=== PATIENT | male | born 1990 | race Caucasian/White ===

== ENCOUNTER → 2018-11-18 07:09 | Outpatient (CLI) | payer OTHER, SELFPAY ==
[2018-09-10 08:30] VITALS: BMI 39.9
[2018-11-18 07:45] LABS: Absolute Lymphocyte Count 2.86 X10^3/ul (0.83-4.51); Absolute Neutrophil Count 3.3 X10^3/uL (2.0-7.7); Basophil# 0.02 X10^3/uL; Basophil% 0.3 % (0-1); Eosinophil# 0.24 X10^3/uL; Eosinophils% 3.4 % (0-5); Hematocrit 44.8 % (40-54); Hemoglobin 15.3 g/dl (13.0-16.5); Lymphocyte # 2.86 X10^3/ul (4.0); Lymphocyte % 40.8 % (19-41); Mean Corp Hgb Conc 34.2 g/gl (32-36); Mean Corpuscular Hgb 29.9 pg (27.0-32.0); Mean Corpuscular Volume 87.7 fL (80-94); Mean Platelet Vol. 9.8 fl (6.2-12.0); Monocyte# 0.56 X10^3/uL; Neutrophil # 3.33 X10^3/uL (2.7-7.7); Neutrophil % 47.5 % (47-70); Platelet Count 231 K/mm3 (150-450); RBC Distribution Width CV 12.4 % (11.6-14.6); RBC Distribution Width SD 39.7 fl (35.1-43.9); Red Blood Count 5.11 M/mm3 (4.6-6.2)
[2018-11-18 07:48] LABS: POSITIVE COUNT NO; POSITIVE DIFFERENTIAL NO; POSITIVE MORPHOLOGY NO
[2018-11-18 08:12] LABS: ALB/GLOB Ratio 1.1 RATIO (0.9-2.4); AST(SGOT) 23 U/L (15-37); Alanine Aminotransfer ALT/SGPT 43 U/L (16-61); Alkaline Phosphatase 96 U/L (45-117); Anion Gap 6 (5-15); BUN 12 mg/dL (7-18); BUN/Creat Ratio 12.5 RATIO (10-20); Calcium,Total 8.5 mg/dL (8.5-10.1); Chloride 107 mmol/L (98-107); Cholesterol 179 mg/dL (200); Creatinine, Serum 0.96 mg/dL (0.70-1.30); EST Glomerular Filtration Rate 101 mL/min (>60); Est Glom Filt Rate - Afr Amer 122 mL/min (>60); Globulin 3.7 g/dL (2.2-4.2); Glucose 89 mg/dL (74-106); High Density Lipoprotein 43 mg/dL; Potassium 3.8 mmol/L (3.5-5.1); Protein, Total 7.7 g/dL (6.4-8.2); Sodium Level 140 mmol/L (136-145); Thyroid Stim Hormone (TSH) 2.41 uIU/mL (0.358-3.74); Triglycerides 84 mg/dL; Very Low Density Lipoprotein 17 mg/dL (5-40)
== END ==
PROVIDERS: Family Provider Internal Medicine; PCP Internal Medicine; Referring Provider Internal Medicine; Visit Provider Internal Medicine
DX: E78.5 Hyperlipidemia, unspecified (principal)
CPT/HCPCS: 36415; 80053; 80061; 84443; 85025

== ENCOUNTER → 2018-12-10 09:53 | Outpatient (CLI) | payer OTHER, SELFPAY ==
[2018-12-10 09:11] VITALS: BMI 39.9
--- NOTE | 2018-12-10 09:57 | EKG12_ITS ---
Test Reason : HYPERTENSION Blood Pressure : / mmHG Vent. Rate : 069 BPM Atrial Rate : 069 BPM P-R Int : 152 ms QRS Dur : 094 ms QT Int : 400 ms P-R-T Axes : 024 024 040 degrees QTc Int : 428 ms Normal sinus rhythm Normal ECG Confirmed by DOUGIE KNIGHT ([id number]), senior editor CAITLYN DRUMMOND ([id number]) on 12/13/2018 2:02:38 PM Referred By: Nadeem Martinez Confirmed By:DOUGIE KNIGHT
== END ==
PROVIDERS: Family Provider Internal Medicine; PCP Internal Medicine; Referring Provider Internal Medicine; Visit Provider Internal Medicine
DX: I10 Essential (primary) hypertension (principal)
CPT/HCPCS: 93005

== ENCOUNTER → 2021-06-07 | Outpatient (CLI) | payer MEDICAID, SELFPAY | END | disposition home or self-care (01) | LOC: LABSPEC 10:36 | PROVIDERS: PCP Internal Medicine; Referring Provider Physician Assistant Surgical; Visit Provider Physician Assistant Surgical | DX: Z20.822 Contact with and (suspected) exposure to COVID-19 (principal) | CPT/HCPCS: 87635; U0005; U0003 ==

== ENCOUNTER → 2021-07-30 09:03 | Outpatient (CLI) | payer MEDICAID, SELFPAY ==
[2021-07-30 09:42] LABS: Absolute Lymphocyte Count 3.49 X10^3/uL (0.83-4.51); Absolute Neutrophil Count 3.1 X10^3/uL (2.0-7.7); Basophil# 0.06 X10^3/uL; Basophil% 0.8 % (0-1); Eosinophil# 0.51 X10^3/uL; Eosinophils% 6.4 % (0-5); Hematocrit 45.9 % (40-54); Hemoglobin 15.1 g/dL (13.0-16.5); Lymphocyte # 3.49 X10^3/ul (0.83-4.51); Lymphocyte % 43.8 % (19-41); Mean Corp Hgb Conc 32.9 g/dL (32-36); Mean Corpuscular Hgb 29.6 pg (27.0-32.0); Mean Platelet Vol. 9.9 fl (6.2-12.0); Monocyte# 0.75 X10^3/uL; Monocyte% 9.4 % (0-10); NRBC Flagged by Analyzer 0 % (0-5); Neutrophil # 3.14 X10^3/uL (2.7-7.7); Neutrophil % 39.3 % (47-70); Platelet Count 271 K/mm3 (150-450); RBC Distribution Width SD 39.5 fl (35.1-43.9)
[2021-07-30 10:37] LABS: ALB/GLOB Ratio 0.9 RATIO (0.9-2.4); AST(SGOT) 30 U/L (15-37); Alanine Aminotransfer ALT/SGPT 71 U/L (16-61); Albumin, Serum 3.7 g/dL (3.2-5.0); Alkaline Phosphatase 109 U/L (45-117); Anion Gap 6 (5-15); BUN 12 mg/dL (7-18); BUN/Creat Ratio 11.8 RATIO (10-20); Calcium,Total 8.6 mg/dL (8.5-10.1); Chloride 106 mmol/L (98-107); Cholesterol 189 mg/dL (200); Creatinine, Serum 1.02 mg/dL (0.70-1.30); EST Glomerular Filtration Rate 92 mL/min (>60); Est Glom Filt Rate - Afr Amer 111 mL/min (>60); Glucose 95 mg/dL (74-106); High Density Lipoprotein 44 mg/dL; Potassium 3.7 mmol/L (3.5-5.1); Protein, Total 7.7 g/dL (6.4-8.2); Sodium Level 140 mmol/L (136-145); Thyroid Stim Hormone (TSH) 3.99 uIU/mL (0.358-3.74); Triglycerides 152 mg/dL; Very Low Density Lipoprotein 30 mg/dL (5-40)
== END ==
PROVIDERS: PCP Internal Medicine; Referring Provider Nurse Practitioner Family; Visit Provider Nurse Practitioner Family
DX: Z00.00 Encounter for general adult medical examination without abnormal findings (principal)
CPT/HCPCS: 36415; 80053; 80061; 84443; 85025

== ENCOUNTER → 2024-05-31 | Outpatient (CLI) | payer MEDICAID, SELFPAY ==
--- OUTSIDE RECORDS SUMMARY | 2024-05-31 17:49 | XMS RPT_ITS | CCD ---
Author Organization [facility] Partnership [facility] Care Team Providers Care 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 Name Role Phone Jason Tatum MD Unavailable Nadeem Martinez MD Primary Care Provider [phone] NADEEM MARTINEZ Primary Care Unavailable JACKI LYLE Referring Unavailable NADEEM MARTINEZ Primary Care Unavailable Nadeem Martinez MD Primary Care Provider [phone] Allergies Allergy Classification Reported Allergen(s) Allergy Type Date of Onset Reaction(s) Facility (4 sources) Amoxicillin; Translations: [AMOXICILLIN] Drug Allergy 05-19-2016 Other: See Comments [facility] Medications Current Medications Medication Drug Class(es) Dates Sig (Normalized) Sig (Original) escitalopram 20 mg oral tablet (3 sources) Serotonin Reuptake Inhibitor Start: 04-10-2023 escitalopram oxalate (LEXAPRO) 20 mg tablet 04/10/2023 Active predniSONE 20 mg oral tablet (2 sources) Start: 06-01-2023 End: 06-06-2023 take 2 tablets by mouth once daily predniSONE (DELTASONE) 20 mg tablet Take 2 tablets by mouth once daily for 5 days. 10 tablet 0 06/01/2023 06/06/2023 Active Comment on above: Take 2 tablets by [facility] once daily for 5 days. Completed/Discontinued Medications Medication Drug Class(es) Dates Sig (Normalized) Sig (Original) [id number] 200 actuat albuterol 0.09 mg/actuat metered dose inhaler (2 sources) beta2-Adrenergic Agonist Start: 06-01-2023 take 2 puff(s) by inhalation every six hours as needed albuterol HFA (PROAIR HFA) 90 mcg/actuation inhaler Inhale 2 Puffs as instructed every 6 hours as needed. 1 Each 0 06/01/2023 Active Comment on above: Inhale 2 Puffs as in structed every 6 hours as needed. Problems Problem Classification Problem Date Documented Da te Episodic/Chronic Chronic obstructive pulmonary disease and bronchiectasis (1 source) Bronchitis; Translations: [Bronchitis, not specified as acute or chronic] 06-01-2023 Episodic Other lower respiratory disease (1 source) Shortness of breath; Translations: [SOB (shortness of breath)] Onset: 06-01-2023 Episodic Other lower respiratory disease (1 source) Dyspnea; Translations: [Shortness of breath] 06-01-2023 Episodic Other nutritional; endocrine; and metabolic disorders (3 sources) Obesity; Translations: [Obesity, unspecified] 08-20-2016 Chronic Results Test Name Value Interpretation Reference Range [facility] ([id number]) 1990 Date Time Provider Department 06/02/23 MAURY JEFFERSON [facility] During your visit today, we recorded the following information about you: Maury Jefferson APRN.CNP 06/02/2023 7:23 AM Signed COVID-19, influenza A, and influenza B PCR test are negative. Continue supportive therapies as discussed during visit. Follow-up with PCP if symptoms are not improving. Maury Jefferson APRN.Maureen Kelly LPN 06/02/2023 7:27 AM Signed LM for patient with negative results.Maureen Anderson LPN Allergies As of Date: 06/02/2023 Noted Allergy Reaction AMOXICILLIN 05/19/2016 14 - Other: See Comments Comments: Joint pain Date Reviewed: 06/01/2023 Reviewed by: Ria Bush - Fully Assessed Reason for Visit: Results [95] Prescriptions as of 06/02/2023 - escitalopram oxalate (LEXAPRO) 20 mg tablet - predniSONE (DELTASONE) 20 mg tablet Take 2 tablets by mouth once daily for 5 days. - albuterol HFA (PROAIR HFA) 90 mcg/actuation inhaler Inhale 2 Puffs as instructed every 6 hours as needed. Problem List As Of Date 06/02/2023 Noted Resolved Obesity [E66.9] Encounter Status:Closed by MAUREEN ANDERSON LPN on 06/02/23 [facility] CNOVon 06-01-2023 CNOV Office Visit ([facility] ) CHATA BYERS ([id number]) 1990 M Date Time Provider Department 06/01/23 9:45 AM JACKI LYLE [facility] During your visit today, we recorded the following information about you: Temperature Pulse Respiration Blood pressure 99.1 degrees 98/minute 18/minute 118/72 Weight 139.7 kg Jacki Lyle PA-C 06/01/2023 10:50 AM Signed This note was created using Ticket ABCriter. Subjective Chata Byers is a 32 year old male. HPI Presents with fever and shortness of breath over the past 2 days. He states his kids have been sick with coughs recently as well. He denies any history of asthma. Feels wheezy however. No diarrhea or vomiting. Minimal cough. States his nose has been more dry than congestion. No ear pain. Denies sore throat. No home COVID test done. Temp at home was 100.5 this morning. No otc meds taken at home today. Review of Systems Constitutional: Positive for fatigue and fever. HENT: Negative for congestion, postnasal drip and sore throat. Respiratory: Positive for cough, shortness of breath and wheezing. Cardiovascular: Negative. Gastrointestinal: Negative. Genitourinary: Negative. Musculoskeletal: Negative. All other systems reviewed and are negative. PAST MEDICAL HISTORY Diagnosis Date Obesity Onychomycosis Current Outpatient Medications Medication Sig Dispense Refill escitalopram oxalate (LEXAPRO) 20 mg tablet predniSONE (DELTASONE) 20 mg tablet Take 2 tablets by mouth once daily for 5 days. 10 tablet 0 albuterol HFA (PROAIR HFA) 90 mcg/actuation inhaler Inhale 2 Puffs as instructed every 6 hours as needed. 1 Each 0 No current facility-administered medications for this visit. PAST SURGICAL HISTORY Procedure Laterality Date NONE FAMILY HISTORY Problem Relation Age of Onset Alzheimer's Disease Paternal Grandmother Social History Tobacco Use Smoking status: Some Days Years: 4 Types: Cigarettes Smokeless tobacco: Never Tobacco comments: 1 cigarette every 2-3 weeks Substance Use Topics Alcohol use: Yes Comment: monthly 2-3 drinks Drug use: No Objective BP 118/72 Pulse 98 Temp 37.3 ?C (99.1 ?F) Resp 18 Wt (!) 139.7 kg (308 lb) SpO2 96% BMI 42.36 kg/m? Physical Exam Vitals reviewed. Constitutional: Appearance: Normal appearance. HENT: Head: Normocephalic and atraumatic. Right Ear: Tympanic membrane, ear canal and external ear normal. Left Ear: Tympanic membrane, ear canal and external ear normal. Nose: Nose normal. Mouth/Throat: Mouth: Mucous membranes are moist. Pharynx: Oropharynx is clear. Cardiovascular: Rate and Rhythm: Normal rate and regular rhythm. Heart sounds: Normal heart sounds. Pulmonary: Effort: Pulmonary effort is normal. Breath sounds: Wheezing present. Comments: Mild diffuse wheezing at the end of expiration in all lung mast. No respiratory distress. No rhonchi. Musculoskeletal: Cervical back: Neck supple. Neurological: Mental Status: He is alert. Assessment and Plan ASSESSMENT/PLAN: 1. Bronchitis - ICD9: 490, ICD10: J40 This x-ray shows atelectasis versus fibrosis in his lingula. No pneumonia noted. I feel he does have a viral bronchitis. We will treat with prednisone and albuterol inhaler. Follow-up with PCP if not improving. Patient agreeable. - XR CHEST 2V FRONTAL/LAT OSIEL Maldonado Cara R, PA-C 06/01/2023 12:46 PM Signed Addended by: JACKI LYLE on: 06/01/2023 12:46 PM Modules accepted: Orders Allergies As of Date: 06/01/2023 Noted Allergy Reaction AMOXICILLIN 05/19/2016 14 - Other: See Comments Comments: Joint pain Date Reviewed: 06/01/2023 Reviewed by: Ria Bush - Fully Assessed Reason for Visit: Fever [47] Cmt: sob x 2 days Primary Visit Diagnosis:Bronchitis [J40] Order(s):XR CHEST 2V FRONTAL/LAT [[id number]] Order #: [id number] FUTURE predniSONE (DELTASONE) 20 mg tabletTake 2 tablets by mouth once daily for 5 days.Disp: 10 tabletRfl: 0 albuterol HFA (PROAIR HFA) 90 mcg/actuation inhalerInhale 2 Puffs as instructed every 6 hours as needed.Disp: 1 EachRfl: 0 COVID AND INFLUENZA A/B AND RSV NAAT, ROUTINE [SQCVFLRS] Order #: [id number]. #:[id number] COVID NAAT, UPPER RESPIRATORY, ROUTINE [SQCOVID] Reflex Order#: [id number] (Ord#:[id number])Spec. #:[id number] ROUTINE FLU A/B + RSV [SQRTFRSV] Reflex Order#: [id number] (Ord#:[id number])Spec. #:[id number] Prescriptions as of 06/01/2023 - escitalopram oxalate (LEXAPRO) 20 mg tablet - predniSONE (DELTASONE) 20 mg tablet Take 2 tablets by mouth once daily for 5 days. - albuterol HFA (PROAIR HFA) 90 mcg/actuation inhaler Inhale 2 Puffs as instructed every 6 hours as needed. Problem List As Of Date 06/01/2023 Noted Resolved Obesity [E66.9] Prescriptions ordered this encounter Disp Refills Start End PREDNISONE 20 MG TABLET 10 t* 0 06/01/2023 06/06/2023 (more content not included)... Normal [facility] ROUTINE FLU A/B + RSVon 05-05 FLUAV RNA ABDON+probe Ql (Unsp spec) Not detected Normal Not Detected [facility] Comment on above: Order Comment: Speci men Type: SWAB OF INTERNAL NOSE Ordering Facility: [facility] Address: [address] [place] [address] Performed By: #### R TFRSV, [id number] #### [facility] CLIA [id number] [address] [place] [address] [place] FLUBV RNA ABDON+probe Ql (Unsp spec) Not detected Normal Not Detected [facility] Comment on above: Order Comment: Speci men Type: SWAB OF INTERNAL NOSE Ordering Facility: [facility] Address: [address] [place] [address] Performed By: #### R TFRSV, [id number] #### [facility] CLIA [id number] [address] [place] [address] [place] RSV A RNA ABDON+probe Ql (Unsp spec) Not detected Normal Not Detected [facility] Comment on above: Order Comment: Speci men Type: SWAB OF INTERNAL NOSE Ordering Facility: [facility] Address: [address] [place] [address] Performed By: #### R TFRSV, 20674-2 #### [facility] CLIA [id number] [address] [place] [address] [place] SARS-CoV-2 RNA Resp Ql ABDON+p robeon 06-01-2023 SARS-CoV-2 (COVID-19) RNA ABDON+probe Ql (Resp) COVID 19 RESULT: Not detected The method used is RT-PCR or an equivalent NAAT method. Reference Range (the expected result in uninfected individuals): Not detected Normal [facility] Comment on above: Performed By: #### R TFRSV, 35604-0 #### [facility] CLIA [id number] [address] [place] [address] [place] XR CHEST 2V FRONTAL/LATon XR CHEST 2V FRONTAL/LAT * * *Final Report* * * DATE OF EXAM: Jun 01 2023 10:22AM WOX [id number] - XR CHEST 2V FRONTAL/LAT / PROCEDURE REASON: SOB (shortness of breath) * * * * Physician Interpretation * * * * EXAMINATION: CHEST RADIOGRAPH (2 VIEW FRONTAL and LATERAL) CLINICAL HISTORY: SOB (shortness of breath) MQ: XC2_6 EXAM DATE/TIME: 06/01/2023 10:22 AM COMPARISON: No relevant prior studies available. RESULT: Lines, tubes, and devices: None. Lungs and pleura: No consolidation. No lung mass. No pleural effusion. No pneumothorax. Minimal atelectasis or fibrosis in the right middle lobe and lingula Cardiomediastinal silhouette: Normal cardiomediastinal silhouette. Bones and soft tissues: Unremarkable. IMPRESSION: Minimal atelectasis or fibrosis in the right middle lobe and lingula. Otherwise no acute process Account Support Manager: [facility] Transcribe Date/Time: Jun 01 2023 10:23A Dictated by : NORBERTO ARCHIBALD MD This examination was interpreted and the report reviewed and electronically signed by: NORBERTO ARCHIBALD MD on Jun 01 2023 10:25AM EST [id number] Normal [facility] XR Chest PA and Lateralon IMPRESSION: Minimal atelectasis or fibrosis in the right middle lobe and lingula. Otherwise no acute process Account Support Manager: [facility] Transcribe Date/Time: Jun 01 2023 10:23A Dictated by : NORBERTO ARCHIBALD MD This examination was interpreted and the report reviewed and electronically signed by: NORBERTO ARCHIBALD MD on Jun 01 2023 10:25AM EST DIVISION OF RADIOLOGY * * *Final Report* * * DATE OF EXAM: Jun 01 2023 10:22AM WOX 5291 - XR CHEST 2V FRONTAL/LAT / PROCEDURE REASON: SOB (shortness of breath) * * * * Physician Interpretation * * * * EXAMINATION: CHEST RADIOGRAPH (2 VIEW FRONTAL & LATERAL) CLINICAL HISTORY: SOB (shortness of breath) MQ: XC2_6 EXAM DATE/TIME: 06/01/2023 10:22 AM COMPARISON: No relevant prior studies available. RESULT: Lines, tubes, and devices: None. Lungs and pleura: No consolidation. No lung mass. No pleural effusion. No pneumothorax. Minimal atelectasis or fibrosis in the right middle lobe and lingula Cardiomediastinal silhouette: Normal cardiomediastinal silhouette. Bones and soft tissues: Unremarkable. DIVISION OF RADIOLOGY Provider, Josiane calixto [place] - 06/01/2023 * * *Final Report* * * DATE OF EXAM: Jun 01 2023 10:22AM WOX 5291 - XR CHEST 2V FRONTAL/LAT / PROCEDURE REASON: SOB (shortness of breath) * * * * Physician Interpretation * * * * EXAMINATION: CHEST RADIOGRAPH (2 VIEW FRONTAL & LATERAL) CLINICAL HISTORY: SOB (shortness of breath) MQ: XC2_6 EXAM DATE/TIME: 06/01/2023 10:22 AM COMPARISON: No relevant prior studies available. RESULT: Lines, tubes, and devices: None. Lungs and pleura: No consolidation. No lung mass. No pleural effusion. No pneumothorax. Minimal atelectasis or fibrosis in the right middle lobe and lingula Cardiomediastinal silhouette: Normal cardiomediastinal silhouette. Bones and soft tissues: Unremarkable. IMPRESSION IMPRESSION: Minimal atelectasis or fibrosis in the right middle lobe and lingula. Otherwise no acute process Account Support Manager: [facility] Transcribe Date/Time: Jun 01 2023 10:23A Dictated by : NORBERTO ARCHIBALD MD This examination was interpreted and the report reviewed and electronically signed by: NORBERTO ARCHIBALD MD on Jun 01 2023 10:25AM EST [facility] Radiology Study observation (narrative) [facility] XR Chest PA and LateralOrder ed By: [facility] Provider on 06-01-2023 [facility] Vital Signs Date Time Vital Sign Value Performing Clinician Susani gely 06-01-2023 09:47-0400 Body temperature 99.1 [degF] Jacki Lyle PA-C Work Phone: [facility] 06-01-2023 09:47-0400 Body weight 139.71 kg Jacki Lyle PA-C Work Phone: [facility] 06-01-2023 09:47-0400 Diastolic blood pressure 72 mm[Hg] Jacki Lyle PA-C Work Phone: [facility] 06-01-2023 09:47-0400 Heart rate 98 /min Jacki Lyle PA-C Work Phone: [facility] 06-01-2023 09:47-0400 Respiratory rate 18 /min Jacki Lyle PA-C Work Phone: [facility] 06-01-2023 09:47-0400 SaO2% (BldA) [Mass fraction] 96 % Jacki Lyle PA-C Work Phone: [facility] 06-01-2023 09:47-0400 Systolic blood pressure 118 mm[Hg] Jacki Lyle PA-C Work Phone: [facility] Encounters Encounter Date Encounter Type Care Provider Facility Start: 06-02-2023 Telephone encounter aMury lees APRNDAT Work Phone: [facility] Comment on above: Results Start: 06-01-2023 End: 06-01-2023 ambulatory NADEEM HAMMONDSZECHARIAH Facility:[facility] Start: 06-01-2023 End: 06-01-2023 Subsequent hospital visit by physician Xr [facility] Cristofer Work Phone: Radiology Comment on above: SOB (shortness of br eath) [R06.02] Start: 06-01-2023 End: 06-01-2023 Patient encounter procedure Jacki Lyle PA-C Work Phone: [facility] Comment on above: Bronchitis (Primary Dx) Procedures Date Procedure Procedure Detail Performing Clinician Start: 06-01-2023 Radiologic exam ches t 2 views Jacki Lyle PA-C Work Phone: Plan of Treatment Date Care Activity Detail Author Start: 04-03-2024 Covid-19 Vaccine ( season) Covid-19 Vaccine ( season) [facility] Start: 04-03-2024 Influenza vaccination Influenza Vaccine (#1) [facility] Start: 04-03-2023 Influenza vaccination Influenza Vaccine (#1) [facility] Start: 08-03-2022 Depression Assessment Depression Assessment [facility] Start: 2011 Hepatitis B Vaccine (1 of 3 - 19+ 3-dose series) Hepatitis B Vaccine (1 of 3 - 19+ 3-dose series) [facility] Start: 2011 Urine microalbumin profile DTaP,Tdap,Td Vaccine (1 - Tdap) [facility] Start: 2010 Anxiety Screening Anxiety Screening [facility] Start: 2010 Depression Screening Depression Screening [facility] Start: 2010 Hepatitis C Screening Hepatitis C Screening [facility] Start: 2010 Hepatitis C screening Hepatitis C Screening [facility] Start: 2010 HIV Screening HIV Screening [facility] Start: 2010 HIV screening HIV Screening [facility] Start: 1998 Pneumococcal vaccination [facility] Start: 03-25-1993 Covid-19 Vaccine (#1) Covid-19 Vaccine (#1) [facility] Start: 1992 Hepatitis B Vaccine (1 of 3 - 3-dose series) Hepatitis B Vaccine (1 of 3 - 3-dose series) [facility] COVID & INFLUENZA A/ B & RSV NAAT, ROUTINE COVID & INFLUENZA A/B & RSV NAAT, ROUTINE Microbiology Routine Bronchitis 06/01/2023 12:55 PM EDT [facility] Work Phone: ROUTINE FLU A/B + RSV ROUTINE FL U A/B + RSV Lab Routine Bronchitis 06/01/2023 12:55 PM EDT [facility] Work Phone: SARS-CoV-2 (COVID-19 ) RNA [Presence] in Respiratory specimen by ABDON with probe detection COVID NAAT, UPPER RESPIRATORY, ROUTINE Microbiology Routine Bronchitis 06/01/2023 12:55 PM EDT [facility] Work Phone: Immunizations Immunization Date Immunization Notes Care Provider Ritika bain 05-19-2016 influenza virus vacc ine, unspecified formulation Jacki Lyle PA-C Work Phone: [facility] Payers Date Payer Category Payer Medicaid [id number] 2022 Medicaid [id number] Social History Date Type Detail Facility Start: 06-01-2023 Tobacco smoking stat us [facility]IS Occasional tobacco smoker [facility] Work Phone: History of tobacco use Cigarette Smoker [facility] Work Phone: Start: 06-01-2023 Tobacco use and exposure Smokeless tobacco non-user [facility] Work Phone: Start: 06-01-2023 Alcohol intake Current drinke r of alcohol (finding) [facility] Start: 06-01-2023 History of Social function [facility] Start: 06-01-2023 Tobacco use panel [facility] Start: 06-01-2023 Tobacco Comment 1 cigarette ev yazan 2-3 weeks [facility] Start: 05-19-2016 Alcohol Comment monthly 2-3 drinks [facility] Start: 1990 Sex Assigned At Not on file [facility] Note 06-02-2023 Telephone Encounter - Maureen Anderson LPN - 06/02/2023 7:27 AM EDTTelephone Encounter - Maury Jefferson APRN.CNP - 06/02/2023 7:22 AM EDT Note Date & Type Note Facility 06-02-2023 Miscellaneous Notes Formattin g of this note might be different from the original. LM for patient with negative results.Maureen Anderson LPN COVID-19, influenza A, and influenza B PCR test are negative. Continue supportive therapies as discussed during visit. Follow-up with PCP if symptoms are not improving. Maury Jefferson APRN.SUDHA documented in this encounter [facility] Progress note 06-01-2023 Note Date & Type Note Facility 06-01-2023 Note HNO ID: [id number] Author: Jacki Lyle PA-C Service: ? Author Type: Physician Neonatal Doctor Type: Progress Notes Filed: 06/01/2023 10:50 AM Note Text: This note was created using NoteWriter. Subjective Chata Byers is a 32 year old male. HPI Presents with fever and shortness of breath over the past 2 days. He states his kids have been sick with coughs recently as well. He denies any history of asthma. Feels wheezy however. No diarrhea or vomiting. Minimal cough. States his nose has been more dry than congestion. No ear pain. Denies sore throat. No home COVID test done. Temp at home was 100.5 this morning. No otc meds taken at home today. Review of Systems Constitutional: Positive for fatigue and fever. HENT: Negative for congestion, postnasal drip and sore throat. Respiratory: Positive for cough, shortness of breath and wheezing. Cardiovascular: Negative. Gastrointestinal: Negative. Genitourinary: Negative. Musculoskeletal: Negative. All other systems reviewed and are negative. PAST MEDICAL HISTORY Diagnosis Date Obesity Onychomycosis Current Outpatient Medications Medication Sig Dispense Refill escitalopram oxalate (LEXAPRO) 20 mg tablet predniSONE (DELTASONE) 20 mg tablet Take 2 tablets by mouth once daily for 5 days. 10 tablet 0 albuterol HFA (PROAIR HFA) 90 mcg/actuation inhaler Inhale 2 Puffs as instructed every 6 hours as needed. 1 Each 0 No current facility-administered medications for this visit. PAST SURGICAL HISTORY Procedure Laterality Date NONE FAMILY HISTORY Problem Relation Age of Onset Alzheimer's Disease Paternal Grandmother Social History Tobacco Use Smoking status: Some Days Years: 4 Types: Cigarettes Smokeless tobacco: Never Tobacco comments: 1 cigarette every 2-3 weeks Substance Use Topics Alcohol use: Yes Comment: monthly 2-3 drinks Drug use: No Objective BP 118/72 Pulse 98 Temp 37.3 ?C (99.1 ?F) Resp 18 Wt (!) 139.7 kg (308 lb) SpO2 96% BMI 42.36 kg/m? Physical Exam Vitals reviewed. Constitutional: Appearance: Normal appearance. HENT: Head: Normocephalic and atraumatic. Right Ear: Tympanic membrane, ear canal and external ear normal. Left Ear: Tympanic membrane, ear canal and external ear normal. Nose: Nose normal. Mouth/Throat: Mouth: Mucous membranes are moist. Pharynx: Oropharynx is clear. Cardiovascular: Rate and Rhythm: Normal rate and regular rhythm. Heart sounds: Normal heart sounds. Pulmonary: Effort: Pulmonary effort is normal. Breath sounds: Wheezing present. Comments: Mild diffuse wheezing at the end of expiration in all lung mast. No respiratory distress. No rhonchi. Musculoskeletal: Cervical back: Neck supple. Neurological: Mental Status: He is alert. Assessment and Plan ASSESSMENT/PLAN: 1. Bronchitis - ICD9: 490, ICD10: J40 This x-ray shows atelectasis versus fibrosis in his lingula. No pneumonia noted. I feel he does have a viral bronchitis. We will treat with prednisone and albuterol inhaler. Follow-up with PCP if not improving. Patient agreeable. - XR CHEST 2V FRONTAL/LAT Jacki Lyle PA-C [facility] Note 06-01-2023 Addendum Note - Jacki Lyle PA-C - 06/01/2023 12:46 PM EDT Note Date & Type Note Facility 06-01-2023 Miscellaneous Notes Addended by: JACKI LYLE on: 06/01/2023 12:46 PM Modules accepted: Orders documented in this encounter [facility] Progress note 06-01-2023 Note Date & Type Note Facility 06-01-2023 Note HNO ID: [id number] Author: Cookie Hood RT(R) Service: Radiology Author Type: Technologist Type: Progress Notes Filed: 06/01/2023 10:23 AM Note Text: Radiology Service Progress Note PATIENT NAME: Chata Byers DATE OF SERVICE: June 01, 2023 TIME: 10:17 AM PATIENT IDENTITY VERIFICATION COMPLETED USING TWO (2) IDENTIFIERS: Name and Date of confirmed by patient verbally. FALL SCREENING: Has the patient had 2 falls in the last year or 1 fall with injury or currently using an Ambulatory Assistive Device (Walker, Cane, Wheelchair, Crutches, etc.)? No PATIENT GENDER DATA: Male PATIENT RELEVANT IMPLANT DATA REVIEWED: Yes RADIOLOGY DEPARTMENT: General X-ray: Exam(s) Completed: Chest X-Ray PERIPHERAL IV DATA: Not applicable SIGNED BY: RT Kenna(R) June 01, 2023 10:17 AM [facility] History of Present illness Narrative 06-01-2023 Jacki Lyle PA-C - 06/01/2023 10:48 AM EDT Note Date & Type Note Facility 06-01-2023 History of Presen t illness Narrative This note was created using Vigilant Solutionster. Subjective Chata Byers is a 32 year old male. HPI Presents with fever and shortness of breath over the past 2 days. He states his kids have been sick with coughs recently as well. He denies any history of asthma. Feels wheezy however. No diarrhea or vomiting. Minimal cough. States his nose has been more dry than congestion. No ear pain. Denies sore throat. No home COVID test done. Temp at home was 100.5 this morning. No otc meds taken at home today. Review of Systems Constitutional: Positive for fatigue and fever. HENT: Negative for congestion, postnasal drip and sore throat. Respiratory: Positive for cough, shortness of breath and wheezing. Cardiovascular: Negative. Gastrointestinal: Negative. Genitourinary: Negative. Musculoskeletal: Negative. All other systems reviewed and are negative. PAST MEDICAL HISTORY Diagnosis Date Obesity Onychomycosis Current Outpatient Medications Medication Sig Dispense Refill escitalopram oxalate (LEXAPRO) 20 mg tablet predniSONE (DELTASONE) 20 mg tablet Take 2 tablets by mouth once daily for 5 days. 10 tablet 0 albuterol HFA (PROAIR HFA) 90 mcg/actuation inhaler Inhale 2 Puffs as instructed every 6 hours as needed. 1 Each 0 No current facility-administered medications for this visit. PAST SURGICAL HISTORY Procedure Laterality Date NONE FAMILY HISTORY Problem Relation Age of Onset Alzheimer's Disease Paternal Grandmother Social History Tobacco Use Smoking status: Some Days Years: 4 Types: Cigarettes Smokeless tobacco: Never Tobacco comments: 1 cigarette every 2-3 weeks Substance Use Topics Alcohol use: Yes Comment: monthly 2-3 drinks Drug use: No Objective BP 118/72 Pulse 98 Temp 37.3 C (99.1 F) Resp 18 Wt (!) 139.7 kg (308 lb) SpO2 96% BMI 42.36 kg/m Physical Exam Vitals reviewed. Constitutional: Appearance: Normal appearance. HENT: Head: Normocephalic and atraumatic. Right Ear: Tympanic membrane, ear canal and external ear normal. Left Ear: Tympanic membrane, ear canal and external ear normal. Nose: Nose normal. Mouth/Throat: Mouth: Mucous membranes are moist. Pharynx: Oropharynx is clear. Cardiovascular: Rate and Rhythm: Normal rate and regular rhythm. Heart sounds: Normal heart sounds. Pulmonary: Effort: Pulmonary effort is normal. Breath sounds: Wheezing present. Comments: Mild diffuse wheezing at the end of expiration in all lung mast. No respiratory distress. No rhonchi. Musculoskeletal: Cervical back: Neck supple. Neurological: Mental Status: He is alert. Assessment and Plan ASSESSMENT/PLAN: 1. Bronchitis - ICD9: 490, ICD10: J40 This x-ray shows atelectasis versus fibrosis in his lingula. No pneumonia noted. I feel he does have a viral bronchitis. We will treat with prednisone and albuterol inhaler. Follow-up with PCP if not improving. Patient agreeable. - XR CHEST 2V FRONTAL/LAT Jacki Lyle PA-C documented in this encounter [facility] History of Present illness Narrative 06-01-2023 Cookie Hood RT(R) - 06/01/2023 10:20 AM EDT Note Date & Type Note Facility 06-01-2023 History of Presen t illness Narrative Radiology Service Progress Note PATIENT NAME: Chata Byers DATE OF SERVICE: June 01, 2023 TIME: 10:17 AM PATIENT IDENTITY VERIFICATION COMPLETED USING TWO (2) IDENTIFIERS: Name and Date of confirmed by patient verbally. FALL SCREENING: Has the patient had 2 falls in the last year or 1 fall with injury or currently using an Ambulatory Assistive Device (Walker, Cane, Wheelchair, Crutches, etc.)? No PATIENT GENDER DATA: Male PATIENT RELEVANT IMPLANT DATA REVIEWED: Yes RADIOLOGY DEPARTMENT: General X-ray: Exam(s) Completed: Chest X-Ray PERIPHERAL IV DATA: Not applicable SIGNED BY: RT Kenna(Litzy) June 01, 2023 10:17 AM documented in this encounter [facility] Evaluation note Note Date & Type Note Facility Evaluation note Diagnosis Bronchitis- Primary Bronchitis, not specified as acute or chronic documented in this encounter [facility] Evaluation note Note Date & Type Note Facility Evaluation note Diagnosis SOB (shortness of breath) Shortness of breath documented in this encounter [facility] Summary Purpose Family History No Family History Records Found Advance Directives No Advanced Directives Records Found Additional Source Comments Source Comments (unrecognize d section and content) In the event this informatio n is protected by the Federal Confidentiality of Alcohol and Drug Abuse Patient Records regulations: The Federal rules restrict any use of the information to criminally investigate or prosecute any alcohol or drug abuse patient.[facility] event this information is protected by the Federal Confidentiality of Alcohol and Drug Abuse Patient Records regulations: The Federal rules restrict any use of the information to criminally investigate or prosecute any alcohol or drug abuse patient.[facility] the event this information is protected by the Federal Confidentiality of Alcohol and Drug Abuse Patient Records regulations: The Federal rules restrict any use of the information to criminally investigate or prosecute any alcohol or drug abuse patient.[facility] Reason for Visit (unrecogniz ed section and content) Reason Comments Fever sob x 2 days Reason Comments Results Care Teams (unrecognized sec tion and content) 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 Relationship Specialty Start Date End Date Nadeem Martinez MD [address] [place], [place] [id number] PCP - General Internal Medicine 06/01/23 Jason Tatum MD [address] [facility] [place] [id number] [facility] 05/19/16 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 Relationship Specialty Start Date End Date Nadeem Martinez MD [address] [place], [place] [id number] PCP - General Internal Medicine 06/01/23 Jason Tatum MD [address] [facility] [place] [id number] [facility] 05/19/16 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 This clinical summary was aggregated from multiple sources. Caution should be exercised in using it in the provision of clinical care. This summary normalizes information from multiple sources, and as a consequence, information in this document may materially change the coding, format and clinical context of patient data. In addition, data may be omitted in some cases. CLINICAL DECISIONS SHOULD BE BASED ON THE PRIMARY CLINICAL RECORDS. [employer] [facility]. provides no warranty or guarantee of the accuracy or completeness of information in this document.
== END | disposition home or self-care (01) ==
LOC: SL 12:12
PROVIDERS: PCP Internal Medicine; Referring Provider Internal Medicine; Visit Provider Internal Medicine
DX: G47.10 Hypersomnia, unspecified (principal)
CPT/HCPCS: 95806

== ENCOUNTER → 2024-06-17 | Outpatient (CLI) | payer MEDICAID, SELFPAY | END | disposition home or self-care (01) | LOC: SL 10:32 | PROVIDERS: PCP Internal Medicine; Visit Provider Internal Medicine | DX: Z46.89 Encounter for fitting and adjustment of other specified devices (principal) ==

== ENCOUNTER → 2024-10-29 | Outpatient (CLI) | payer MEDICAID, SELFPAY ==
[2024-10-29 11:41] LABS: Absolute Neutrophil Count 2.6 X10^3/uL (2.0-7.7); Basophil# 0.07 X10^3/uL; Basophil% 1.3 % (0-1); Eosinophils% 5.6 % (0-5); Hematocrit 41.7 % (40-54); Hemoglobin 13.9 g/dL (13.0-16.5); Lymphocyte % 35.2 % (19-41); Mean Corp Hgb Conc 33.3 g/dL (32-36); Mean Corpuscular Hgb 29.1 pg (27.0-32.0); Mean Corpuscular Volume 87.4 fL (80-94); Mean Platelet Vol. 10.1 fl (6.2-12.0); Monocyte# 0.53 X10^3/uL; Monocyte% 9.8 % (0-10); NRBC Flagged by Analyzer 0 % (0-5); Neutrophil # 2.59 X10^3/uL (2.7-7.7); Neutrophil % 47.9 % (47-70); Platelet Count 254 K/mm3 (150-450); RBC Distribution Width CV 12.9 % (11.6-14.6); RBC Distribution Width SD 40.7 fl (35.1-43.9); Red Blood Count 4.77 M/mm3 (4.6-6.2); White Blood Count 5.4 K/mm3 (4.4-11.0)
[2024-10-29 13:02] LABS: ALB/GLOB Ratio 1.4 RATIO (0.9-2.4); AST(SGOT) 25 U/L (<=37); Alanine Aminotransfer ALT/SGPT 28 U/L (<=46); Albumin, Serum 4.1 g/dL (3.5-5.0); Alkaline Phosphatase 108 U/L (40-129); Anion Gap 10 (5-15); BUN 14 mg/dL (4-19); BUN/Creat Ratio 12.4 RATIO (10-20); Calcium,Total 8.6 mg/dL (7.6-11.0); Carbon Dioxide 22.6 mmol/L (21.0-32.0); Chloride 107 mmol/L (98-108); Cholesterol 162 mg/dL (<=200); Creatinine, Serum 1.13 mg/dL (0.70-1.20); EST Glomerular Filtration Rate 89 (>60); Glucose 91 mg/dL (70-99); High Density Lipoprotein 38 mg/dL; Low Density Lipoprotein Calc. 104 mg/dL; Potassium 4.1 mmol/L (3.3-5.1); Protein, Total 7.1 g/dL (5.9-8.4); Sodium Level 140 mmol/L (133-145); Total Bilirubin 0.54 mg/dL (0.00-1.30); Triglycerides 100 mg/dL; Very Low Density Lipoprotein 20 mg/dL (5-40)
== END | disposition home or self-care (01) ==
PROVIDERS: PCP Internal Medicine; Referring Provider Internal Medicine; Visit Provider Internal Medicine
DX: Z00.00 Encounter for general adult medical examination without abnormal findings (principal); R79.89 Other specified abnormal findings of blood chemistry
CPT/HCPCS: 36415; 80053; 80061; 84439; 84443; 85025